=== PATIENT | male | born 1975 | race Caucasian/White ===

== ENCOUNTER 2017-04-04 14:43 | Emergency (ER) | payer OTHER ==
--- NOTE | 2017-04-04 16:56 | ED CLINICAL REPORT ---
Clinical Report - Physicians/Mid Levels [facility] [address] [place] [address] 04/04/2017 14:46 Patient: AMISHA WILLS Time Seen: 15:22 Apr 04 2017. Arrived- By private vehicle. Historian- patient. HISTORY OF PRESENT ILLNESS Chief Complaint: ABDOMINAL PAIN. This started yesterday, is still present and is now gone. The patient has had nausea, vomiting and diarrhea. (patient presents with vomiting diarrhea over the last 2 days. Denies any abdominal pain. reports being at a wedding 4 days previously. Denies any fevers. Denies any antibiotics. Denies any other changes. Denies sick contacts.). REVIEW OF SYSTEMS No constipation, black stools, hematemesis, difficulty with urination or pain with urination. No headache, sore throat, chest pain or difficulty breathing. All systems otherwise negative, except as recorded above. SOCIAL HISTORY Smoker- current status unknown. Alcohol use. No drug use. PHYSICAL EXAM ENT: Pharynx normal. Neck: Normal inspection. CVS: Normal heart rate and rhythm. Heart sounds normal. Respiratory: No respiratory distress. Breath sounds normal. Abdomen: Nontender. Bowel sounds normal. No organomegaly. No mass. Back: Normal inspection. No CVA tenderness. Skin: Skin warm. Normal skin color. LABS, X-RAYS, AND EKG Laboratory Tests: UA-Culture if indicated: (SHANTI: 04/04/2017 16:18) ( MsgRcvd 04/04/2017 16:55) Final results Test Result Flag Units (Reference) URINE COLOR YELLOW URINE APPEARANCE CLEAR URINE GLUCOSE NEGATIVE (NEGATIVE) URINE BILIRUBIN NEGATIVE (NEGATIVE) URINE KETONE NEGATIVE (NEGATIVE) URINE SPECIFIC GRAVITY 1.010 (1.010-1.030) URINE PH >= 9.0 H (5.0-8.0) URINE PROTEIN 2+ (NEGATIVE) URINE UROBILINOGEN 0.2 EU/dL (0.2-1.0) URINE NITRITE NEGATIVE (NEGATIVE) URINE BLOOD NEGATIVE (NEGATIVE) URINE LEUK ESTERASE NEGATIVE (NEGATIVE) URINE RBC RARE rbc/hpf (0-1) URINE WBC 0-1 wbc/hpf (0-1) URINE EPITHELIAL CELLS 0-1 EPI/hpf (0-5) URINE BACTERIA TRACE (<1+) (NONE SEEN) URINE COMMENT CULT NOT INDICATED URINE CULTURES ARE SET-UP BASED ON THE FOLLOWING CRITERIA:POSITIVE NITRITEPOSITIVE LEUKOCYTE ESTERASEGREATER THAN 10 WHITE BLOOD CELLSMODERATE (2+) OR GREATER BACTERIA CBC w Diff: (SHANTI: 04/04/2017 15:10) ( [facility] [place] 04/04/2017 15:23) Final results Test Result Flag Units (Reference) WHITE BLOOD COUNT 6.0 K/uL (4.5-11.5) RED BLOOD COUNT 5.07 M/uL (4.50-5.90) HEMOGLOBIN 15.4 gm/dL (13.5-17.5) HEMATOCRIT 46.7 % (41.0-53.0) MEAN CELL VOLUME 92 fL (80-100) MEAN CORPUSCULAR HGB 30 pg (26-34) MEAN CORPUSCULAR HGB CONC 33 g/dL (31-37) RED CELL DISTRIBUTION WIDTH 13.8 % (11.6-14.8) PLATELET COUNT 258 K/uL (150-400) NEUTROPHIL % 65.3 % (50-75) LYMPH % 23.5 L % (25-40) MONO % 7.4 % (3-14) EOSINOPHIL % 2.6 % (0-4) BASOPHIL % 1.2 % (0-2) CMP: (SHANTI: 04/04/2017 15:10) ( [facility] [place] 04/04/2017 15:46) Final results Test Result Flag Units (Reference) GLUCOSE 126 H mg/dL (70-110) BUN 5 L mg/dL (7-18) CREATININE 0.9 mg/dL (0.6-1.3) Estimated GFR >60 mL/min Estimated GFR- >60 mL/min Note: Persistent reduction over 3 months in eGFR<60 mL/min/1.73 m2 defines CKD. Patients with eGFR values>=60 mL/min/1.73 m2 may also have CKD if evidence ofpersistent proteinuria. Additional information may be foundat www.kidney.org. SODIUM 143 mmol/L (136-145) POTASSIUM 3.3 L mmol/L (3.5-5.1) CHLORIDE 103 mmol/L (98-107) CARBON DIOXIDE 31 mmol/L (21-32) CALCIUM 8.9 mg/dL (8.5-10.1) TOTAL PROTEIN 7.3 g/dL (6.4-8.2) ALBUMIN 3.7 g/dL (3.3-5.0) BILIRUBIN, TOTAL 0.3 mg/dL (0.0-1.0) ALKALINE PHOSPHATASE 138 H U/L (46-116) AST (SGOT) 19 U/L (15-37) ALT (SGPT) 30 U/L (12-78) LIPASE 493 H U/L (73-393) . PROGRESS AND PROCEDURES Course of Care: patient with no emesis or diarrhea in the emergency department. Very stable. No signs of CVA Tenderness no signs of acute surgical abdomen. Patient is very stable. No further emesis. I do not suspect obstruction. During the time in the ED, the following DDX were considered: acute surgical abdomen, hemodynamic or metabolic instability, dehydration, gastroenteritis-viral, food borne, or bacterial, food intolerance, irritable or inflammatory bowel, infection, sepsis. 04/04/2017 17:01 BP: 139/72. HR: 81. RR: 16. O2 saturation: 99%. Temp: 98.2 F. 04/04/2017 16:49 BP: 137/84. HR: 95. RR: 15. O2 saturation: 100%. Patient is stable. Patient/family counseled. Differential Diagnosis: I considered gastritis, gastroenteritis, acute appendicitis, diverticulitis, biliary colic, cholecystitis, hepatitis, pancreatitis, splenic injury, splenic rupture, urinary tract infection, cystitis, prostatitis, ovarian cyst, ovarian torsion, pelvic inflammatory disease and pelvic abscess as a possible cause of abdominal pain in this patient. Disposition: Discharged. Condition: good. CLINICAL IMPRESSION Diarrhea Abdominal pain of unknown cause. INSTRUCTIONS (everything looks great today, likely viral hydrate well). Prescription Medications: Zofran (orally disintegrating tablets) 4 mg: take 1 orally every 6 hours for 3 days as needed for nausea. Dispense ten (10). No refill. Substitution is permissible. OTC Medications: Imodium (available over the counter): take according to label instructions. Follow-up: Follow up with your doctor in three days as needed. (Electronically signed by Alfreda Girard P.A.-C 04/04/2017 17:13)
--- NOTE | 2017-04-04 16:56 | ED ORDER SUMMARY ---
..... Patient: AMISHA WILLS OrderSheet [facility] VisitID: [id number] [place] [address] 41y, M Registration Date/Time: 04/04/2017 ORDER SHEET Weight: 81.6 kg (stated) Allergies: Sulfa Antibiotics GENERAL ORDERS: CBC w Diff Urgent (15:11 04/04/2017 EKoroleva P.A.-C) (Ack 15:13 LNations ER Tech1) (15:15 ASchmuck) CMP Urgent (15:11 04/04/2017 EKoroleva P.A.-C) (Ack 15:13 LNations ER Tech1) (15:15 ASchmuck) Lipase Urgent (15:11 04/04/2017 EKoroleva P.A.-C) (Ack 15:13 LNations ER Tech1) (15:15 ASchmuck) UA-Culture if indicated Urgent (15:49 04/04/2017 EKoroleva P.A.-C) (Ack 15:55 LNations ER Tech1) (16:20 ASchmuck) MEDICATION ORDERS: IV FLUIDS: IV NS : initial bolus 1000 mL (1000 mL/hr), then 1000 mL/hr for X1 (NOW); Umberto (15:14 04/04/2017 EKoroleva P.A.-C) (Ack 15:15 ASchmuck) (15:28 ASchmuck) Zofran IV 8 mg (NOW) (15:14 04/04/2017 EKoroleva P.A.-C) (Ack 15:15 ASchmuck) (15:34 ASchmuck) ORDER SHEET NOTES: [Electronically signed by Enrrique Zendejas R.N. (17:04 04/04/2017)] [Electronically signed by Alfreda Girard P.A.-C (17:13 04/04/2017)] [Electronically locked/signed by Enrrique Zendejas R.N. (17:04 04/04/2017)]
--- NOTE | 2017-04-04 16:56 | ED NURSING NOTES ---
Clinical Report - Nurses [facility] [address] [place] [address] 04/04/2017 14:46 Patient: AMISHA WILLS TRIAGE Triage time 14:58 Mo 27 2016. Acuity: LEVEL 3. Chief Complaint: NAUSEA, VOMITING and DIARRHEA. 15:01 04/04/17. Alert. No acute distress. SEPSIS SCREEN: Sepsis Screen. Negative (no infection suspected/documented). HEIDI COMA SCORE: Heidi Coma Scale: 15- eyes open spontaneously (4); best verbal response- oriented x 4 (5); best motor response- obeys commands (6). --15:01 Yeni Francisco 15:01 04/04/17. BP: 144/89. HR: 116. RR: 18. O2 saturation: 100%. Temp: 97.8 F. Pain level now 0/10. --15:01 Yeni Francisco. Weight: 81.6 kg stated. Height/Length: 69 inches Per Patient. BMI: 26.6. --15:00 Yeni Francisco. Medications Ibuprofen Oral. --15:00 Yeni Francisco. Medication/allergy information source: the patient. --15:01 Yeni Francisco. Allergies Sulfa Antibiotics. --15:00 Yeni Francisco. History Arrived by private vehicle. Historian: patient. Unaccompanied. No primary care physician. This started yesterday. ( Pt reports that he feels tired and nauseated since yesterday afternoon. Has been attempting to take fluids, but can't keep down.). He has had nausea, vomiting and diarrhea. No constipation, abdominal pain or fever. Treatment COMPUTER SYSTEMS AUDITOR: None. PAST MEDICAL HX: No history of diabetes mellitus. No history of gastroesophageal reflux disease, peptic ulcer disease or gallstones. Immunizations: up-to-date. SOCIAL HX: Heavy tobacco smoker (cigarette)- 1 pack per day. Occasional alcohol use. No drug use. No recent travel. No known contact with a sick individual. FALL RISK ASSESSMENT: Fall risk assessment completed. No fall risk identified. NUTRITIONAL RISK ASSESSMENT: The nutritional risk assessment revealed no deficiencies. FUNCTIONAL ASSESSMENT: Functional assessment: no impairments noted. LEARNING NEEDS ASSESSMENT: The learning needs assessment revealed no barriers. SKIN INTEGRITY ASSESSMENT: Skin integrity risk assessment completed. No skin integrity risk identified. --15:01 Yeni Francisco. ADDITIONAL SURGERIES: Intestinal blockage at 9 weeks old. --15:00 Yeni Francisco. Assessment The patient states feels the same. --15:01 Yeni Francisco. Interventions ID band on patient. --15:01 Yeni Francisco. PHYSICAL ASSESSMENT 15:04/04/17. Ambulatory to room. Patient gowned. GENERAL / NEURO / PSYCH: Alert. Oriented X 4. Appears in no acute distress. HEENT: Mucous membranes are pink. RESPIRATORY: Respirations not labored. CVS: Capillary refill less than 2 seconds. GI / : Abdomen soft and nontender. Stool color normal. SKIN: Skin is warm and dry. --15:01 Yeni Francisco. NURSING PROGRESS NOTES 15:04/04/17. The plan of care for this patient has been created. Pulse oximeter and NIBP monitor placed on patient; monitor alarms on. Patient gowned. Head of bed elevated. Reassurance given. Two patient identifiers checked. Call light placed in reach. Side rails up x 1. Bed placed in lowest position. Brakes of bed on. Patient ready for evaluation- chart flagged and ED physician and PA notified. --15:02 Yeni Francisco 15:04/04/17. BP: 129/88 taken while lying. HR: 106. O2 saturation: 100%. --15:03 Yeni Francisco 15:04 04/04/17. BP: 127/89 taken while sitting. HR: 104. O2 saturation: 99% on room air. --15:04 Yeni Francisco 15:04/04/17. BP: 119/88. HR: 126. O2 saturation: 99% on room air. --15:06 Yeni Francisco 15:12 04/04/2017 Site #1 started via IV in the right antecubital space with an 20g angiocath, with aseptic technique and good blood return; one attempt. Blood drawn: rainbow set. Labeled in the presence of the patient and sent to the lab. Saline lock flushed with 10 mL saline. --15:12 Yeni Francisco 15:28 04/04/2017 Started bag #1 1000 mL IV Fluids IV NS (Saline); at 1000 mL/hr over 1 hour(s) via site #1 via IV pump. Allergies verified and confirmed 5 rights. IV patency established. IV site checked: no pain, redness, or swelling. IV flushed thoroughly pre- and post-medication administration. --15:28 Yeni Francisco 15:34 04/04/2017 Zofran (Ondansetron HCl) IVP 8 mg given over 2 minute(s) via site #1. Allergies verified and confirmed 5 rights. IV patency established. IV site checked: no pain, redness, or swelling. IV flushed thoroughly pre- and post-medication administration. IVP given by RN. --15:34 Yeni Francisco 15:47 04/04/17. BP: 130/92. HR: 85. O2 saturation: 97%. --15:47 Yeni Francisco 16:21 04/04/17. Patient ID band checked for patient name and birthdate: patient confirmed. Instructions provided to collect clean catch urine and patient verbalized understanding. Clean catch urine collected with return of yellow-colored clear urine; sample sent to lab. Specimen labeled in the presence of the patient. --16:21 Yeni Francisco 16:49 04/04/17. BP: 137/84. HR: 95. RR: 15. O2 saturation: 100% on room air. --16:51 Enrrique Zendejas R.N. 16:48 04/04/2017 IV Fluids IV NS Discontinued: bag #1 infused. Total amount infused: 1000 mL. IV patency established. IV site checked: no pain, redness, or swelling. IV flushed thoroughly. --17:03 Enrrique Zendejas R.N. 16:51 04/04/17. --16:51 Enrrique Zendejas R.N. 16:51 04/04/17. Patient informed about reason for wait and about plan of care. --16:51 Enrrique Zendejas R.N. DISPOSITION / DISCHARGE 17:01 04/04/2017 Site #1 removed upon discharge. Catheter intact. --17:01 Enrrique Zendejas R.N. 17:02 04/04/17. Condition at departure: improved. The goals identified in the patient's plan of care were met. No learning barriers present. Discharge instructions provided and reviewed with the patient. Reviewed warnings. Reviewed medication(s). Treatments reviewed. Patient verbalized understanding. Written instructions provided in Sinhala. The patient was discharged by the physician. He was discharged home. He left the Emergency Department ambulatory and via private vehicle. ( Pt is calling for ride home. 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 FALL RISK ASSESSMENT: Fall risk assessment completed. No fall risk identified. --17:02 Enrrique Zendejas R.N. 17:01 04/04/17. BP: 139/72. HR: 81. RR: 16. O2 saturation: 99% on room air. Temp: 98.2 F (oral). --17:02 Enrrique Zendejas R.N. 17:02 04/04/17. Departure time: 17:Apr 04 2017. --17:02 Enrrique Zendejas R.N. Locked/Released at 04/04/2017 17:04 by Enrrique Zendejas R.N.
--- NOTE | 2017-04-04 16:56 | ED ORDER SUMMARY ---
..... Patient: AMISHA WILLS OrderSheet [facility] VisitID: [id number] [place] [address] 41y, M Registration Date/Time: 04/04/2017 ORDER SHEET Weight: 81.6 kg (stated) Allergies: Sulfa Antibiotics GENERAL ORDERS: CBC w Diff Urgent (15:11 04/04/2017 EKoroleva P.A.-C) (Ack 15:13 LNations ER Tech1) (15:15 ASchmuck) CMP Urgent (15:11 04/04/2017 EKoroleva P.A.-C) (Ack 15:13 LNations ER Tech1) (15:15 ASchmuck) Lipase Urgent (15:11 04/04/2017 EKoroleva P.A.-C) (Ack 15:13 LNations ER Tech1) (15:15 ASchmuck) UA-Culture if indicated Urgent (15:49 04/04/2017 EKoroleva P.A.-C) (Ack 15:55 LNations ER Tech1) (16:20 ASchmuck) MEDICATION ORDERS: IV FLUIDS: IV NS : initial bolus 1000 mL (1000 mL/hr), then 1000 mL/hr for X1 (NOW); Umberto (15:14 04/04/2017 EKoroleva P.A.-C) (Ack 15:15 ASchmuck) (15:28 ASchmuck) Zofran IV 8 mg (NOW) (15:14 04/04/2017 EKoroleva P.A.-C) (Ack 15:15 ASchmuck) (15:34 ASchmuck) ORDER SHEET NOTES: [Electronically signed by Enrrique Zendejas R.N. (17:04 04/04/2017)] [Electronically signed by Alfreda Girard P.A.-C (17:13 04/04/2017)] [Electronically locked/signed by Enrrique Zendejas R.N. (17:04 04/04/2017)]
--- NOTE | 2017-04-04 17:13 | ED MED RECONCILIATION SUMMARY ---
Patient: AMISHA WILLS Medication Reconciliation Report [facility] VisitID: [id number] [address] [place] [address] 41y, M Registration Date/Time: 04/04/2017 Weight: 81.6 kg Height/Length: 69 in. BMI: 26.6 ALLERGIES: Sulfa Antibiotics The patient's Home Medications are listed below: THE FOLLOWING MEDICATIONS NEED TO BE RECONCILED: Ibuprofen Oral The source(s) of the original Home Medication information: patient The following Medications were given to the patient in the Emergency Department: IV NS IV Fluids bolus 0, then 1000 mL/hr, administered: 04/04/2017 3:28:00 PM Zofran [IVP] IVP 8 mg, administered: 04/04/2017 3:34:00 PM The following Medications were prescribed to the patient: Zofran (orally disintegrating tablets) 4 mg: take 1 orally every 6 hours for 3 days as needed for nausea. Dispense ten (10). No refill. Substitution is permissible. -- Alfreda Girard, P.A.-Austen Imodium (available over the counter): take according to label instructions. -- Alfreda Girard, P.A.-C
--- NOTE | 2017-04-04 17:13 | ED MED RECONCILIATION SUMMARY ---
Patient: AMISHA WILLS Medication Reconciliation Report [facility] VisitID: [id number] [address] [place] [address] 41y, M Registration Date/Time: 04/04/2017 Weight: 81.6 kg Height/Length: 69 in. BMI: 26.6 ALLERGIES: Sulfa Antibiotics The patient's Home Medications are listed below: THE FOLLOWING MEDICATIONS NEED TO BE RECONCILED: Ibuprofen Oral The source(s) of the original Home Medication information: patient The following Medications were given to the patient in the Emergency Department: IV NS IV Fluids bolus 0, then 1000 mL/hr, administered: 04/04/2017 3:28:00 PM Zofran [IVP] IVP 8 mg, administered: 04/04/2017 3:34:00 PM The following Medications were prescribed to the patient: Zofran (orally disintegrating tablets) 4 mg: take 1 orally every 6 hours for 3 days as needed for nausea. Dispense ten (10). No refill. Substitution is permissible. -- Alfreda Girard, P.A.-Austen Imodium (available over the counter): take according to label instructions. -- Alfreda Girard, P.A.-C
--- NOTE | 2017-04-04 17:13 | ED DISCHARGE INSTRUCTIONS ---
Patient: AMISHA WILSL General Instructions [facility] VisitID: [id number] [place] [address] 41y, M Registration Date/Time: 04/04/2017 Diarrhea Abdominal pain of unknown cause. INSTRUCTIONS (everything looks great today, likely viral hydrate well). Prescription Medications: Zofran (orally disintegrating tablets) 4 mg: take 1 orally every 6 hours for 3 days as needed for nausea. Dispense ten (10). No refill. Substitution is permissible. OTC Medications: Imodium (available over the counter): take according to label instructions. Follow-up: Follow up with your doctor in three days as needed. ADDITIONAL INFORMATION Diarrhea, Uncertain Cause (Adult, Report Pending) Diarrhea has several possible causes. Commonstomach fluis caused by a virus. Food poisoning, bacteria or parasites are other causes for diarrhea. Only diarrhea caused by bacteria or parasites requires treatment with an antibiotic. Diarrhea from a virus or food poisoning improves with simple home treatment. A stool sample is needed to make the diagnosis of an infection with bacteria or parasites. Up to three stool specimens may be required to diagnose This may take up to two days to get the result. It may be necessary to wait until the stool test is complete to make the diagnosis and select the best antibiotic to prescribe. Home Care: If symptoms are severe, rest at home for the next 24 hours or until you are feeling better. You may use acetaminophen (Tylenol) or ibuprofen (Motrin, Advil) to control fever, unless another medicine was prescribed. [NOTE: If you have chronic liver or kidney disease or ever had a stomach ulcer or GI bleeding, talk with your doctor before using these medicines.] (Aspirin should never be used in anyone under 18 years of age who is ill with a fever. It may cause severe liver damage.) Avoid tobacco, caffeine and alcohol, which may worsen your symptoms. If anti-diarrhea medicine was prescribed, take this only as directed. Sometimes anti-diarrhea medicine can make your condition worse if the cause is an infectious diarrhea. Therefore, anti-diarrhea medicine should not be taken for this condition unless advised by your doctor. During The First 12-24 Hours follow the diet below: BEVERAGES: Sport drinks like Gatorade, soft drinks without caffeine; ruby justine, mineral water (plain or flavored), decaffeinated tea and coffee. SOUPS: Clear broth, consomm and bouillon DESSERTS: Plain gelatin (Jell-O), popsicles and fruit juice bars. During The Next 24 Hours you may add the following to the above: Hot cereal, plain toast, bread, rolls, crackers Plain noodles, rice, mashed potatoes, chicken noodle or rice soup Unsweetened canned fruit (avoid pineapple), bananas Limit fat intake to less than 15 grams per day by avoiding margarine, butter, oils, mayonnaise, sauces, gravies, fried foods, peanut butter, meat, poultry and fish. Limit fiber; avoid raw or cooked vegetables, fresh fruits (except bananas) and bran cereals. Limit caffeine and chocolate. No spices or seasonings except salt. During The Next 24 Hours Gradually resume a normal diet, as you feel better and your symptoms lessen. Follow Up with your doctor or as advised if you are not improving over the next two days. If you were asked to bring a specimen from home, bring the sample on the day of collection. You may call in 2 days (or as directed) for the results. Get Prompt Medical Attention if any of the following occur: Increasing abdominal pain or constant lower right abdominal pain Continued vomiting (unable to keep liquids down) Frequent diarrhea (more than 5 times a day) Blood in vomit or stool (black or red color) Reduced oral intake Dark urine, reduced urine output Weakness, dizziness, fainting Drowsiness, confusion, stiff neck or seizure Fever of 100.4F (38C) oral or higher, not better with fever medication New rash Symptoms With Uncertain Cause [Adult] Based on the exam and any tests that were performed today, the exact cause of your symptoms is not certain. While your condition does not seem serious, the signs of a serious problem may take more time to appear. Therefore, it is important for you to watch for any new symptoms or worsening of your condition.Follow up with your doctor or this facility, as directed.A repeat physical exam or additional testing at a later time may uncover a cause for your symptoms that is not evident today. Home Care: Resume your usual activities and diet when this feels comfortable to do so. Follow Up with your doctor, or as advised by our staff.Contact your doctor sooner if your symptoms do not begin to improve in the next few days. [NOTE: If you had an x-ray, CT scan, ultrasound, or ECG (electrocardiogram), it will be reviewed by a specialist. You will be notified of any new findings that may affect your care.] Get Prompt Medical Attention if any of the following occur: Current symptoms get worse New symptoms appear You have been given the following additional information: Diarrhea, Unk Cause (Adult) Report Pendg Symptoms With Uncertain Cause (Electronically signed by Alfreda Girard P.A.-C 04/04/2017 17:13)
--- NOTE | 2017-04-04 17:13 | ED MAR SUMMARY ---
..... Medication Administration Record [facility] [address] [place] [address] Patient: AMISHA WILLS Visit ID: [id number] 41y, M Weight: 81.6 kg Height/Length: 69 in BMI: 26.6 ALLERGIES: Sulfa Antibiotics Start 15:28 04/04/2017 Yeni Francisco,, Stop 16:48 04/04/2017 Enrrique Zendejas R.N. Medication Administered: IV NS (SALINE), Dose: IV Fluids over 1 hour(s), Rate: 1000 mL/hr, Dispensed: 1000 mL bag, Site: #1 right AC. Medication Ordered: IV NS : initial bolus 1000 mL (1000 mL/hr), then 1000 mL/hr for X1 (NOW); Umberto. Given 15:34 04/04/2017 Yeni Francisco, Medication Administered: ZOFRAN [IVP] (ONDANSETRON HCL), Dose: 8 mg IVP over 2 minute(s), Site: #1 right AC. Medication Ordered: Zofran IV 8 mg (NOW).
--- NOTE | 2017-04-04 17:13 | ED MAR SUMMARY ---
..... Medication Administration Record [facility] [address] [place] [address] Patient: AMISHA WILLS Visit ID: [id number] 41y, M Weight: 81.6 kg Height/Length: 69 in BMI: 26.6 ALLERGIES: Sulfa Antibiotics Start 15:28 04/04/2017 Yeni Francisco,, Stop 16:48 04/04/2017 Enrrique Zendejas R.N. Medication Administered: IV NS (SALINE), Dose: IV Fluids over 1 hour(s), Rate: 1000 mL/hr, Dispensed: 1000 mL bag, Site: #1 right AC. Medication Ordered: IV NS : initial bolus 1000 mL (1000 mL/hr), then 1000 mL/hr for X1 (NOW); Umberot. Given 15:34 04/04/2017 Yeni Francisco, Medication Administered: ZOFRAN [IVP] (ONDANSETRON HCL), Dose: 8 mg IVP over 2 minute(s), Site: #1 right AC. Medication Ordered: Zofran IV 8 mg (NOW).
== END 2017-04-04 17:02 | disposition home or self-care (01) ==
LOC: ED SRH 14:43
DX: R19.7 Diarrhea, unspecified (principal); R10.9 Unspecified abdominal pain
CPT/HCPCS: 90004; 90100; 92235; 95059